=== PATIENT | male | born 1955 | race Caucasian/White ===

== ENCOUNTER 2024-09-11 13:52 | Inpatient (IN) | payer MEDICARE ==
[2024-09-11 15:01] LABS: #Basophils 0.04 10x3/uL (0.0-0.2); %Basophils 0.7 % (0.0-1.0); %Lymphocytes 8.2 % (21.0-51.0); %Monocytes 9.7 % (0.0-10.0); %Neutrophils 78.9 % (42.0-75.0); Hematocrit 32.7 % (42.0-52.0); Hemoglobin 10.3 g/dL (14.0-18.0); Mean Corpuscular HGB CONC 31.5 g/dL (32.0-36.0); Mean Corpuscular Hemoglobin 23.6 pg (27.0-31.0); Mean Platelet Volume 8.7 fL (7.4-10.4); Platelet Count 165 10x3/uL (130-400); RBC Distribution Width 22.3 % (11.5-14.5); Red Blood Cell (RBC) Count 4.36 mill/uL (4.70-6.10)
[2024-09-11] MEDS ORDERED: methylPREDNISolone Sod Succ/PF 125 MG/2 ML VIAL ONE (15:10)
[2024-09-11] MEDS ORDERED: Magnesium 2 GM/50 ML BAG (IN WATER) ONE (15:10)
[2024-09-11] MEDS ORDERED: Albuterol 2.5 MG (0.5 mL) NEB ONE (15:12)
[2024-09-11 15:14] LABS: Troponin I 0.048 ng/mL (< 0.028)
[2024-09-11 15:16] LABS: ALT (SGPT) 21 U/L (Less than 45); AST (SGOT) 43 U/L (11-34); Albumin 2.9 g/dL (3.1-4.5); Alkaline Phosphatase 129 U/L (40-110); Anion Gap 16 mmol/L (10-20); BUN (Urea Nitrogen) 17 mg/dL (8.4-25.7); Bilirubin, Total 1.2 mg/dL (0.3-1.2); Calc. Creatinine Clearance 0 mL/min (70-130); Calcium 8.9 mg/dL (7.8-10.44); Carbon Dioxide 28 mmol/L (23-31); Chloride 97 mmol/L (98-107); Estimated GFR 73; Globulin 5.4 g/dL (2.4-3.5); Glucose 112 mg/dL (80-115); Potassium 3.7 mmol/L (3.5-5.1); Protein, Total 8.3 g/dL (5.8-8.1); Sodium 137 mmol/L (136-145)
[2024-09-11] MEDS ORDERED: Furosemide 40 MG (4 mL) VIAL ONE (16:39)
[2024-09-11] MEDS ORDERED: Ipratropium/Albuterol 3 ML NEB NEB PRN (18:13)
[2024-09-11] MEDS ORDERED: Dextrose 5% in Water 1,000 ML IV PRN (18:21)
[2024-09-11] MEDS ORDERED: Dextrose 50% Abboject 50 ML SYRINGE SLOW IVP PRN (18:21)
[2024-09-11] MEDS ORDERED: Ondansetron PF 4 MG/2 ML Vial IVP PRN (18:21)
[2024-09-11] MEDS ORDERED: Ondansetron ODT 4 MG TAB PO PRN (18:21)
[2024-09-11] MEDS ORDERED: Glucagon 1 MG/ML KIT IM PRN (18:21)
[2024-09-11] MEDS ORDERED: Insulin Lispro 100 UNIT/ML 10 ML VIAL SC PRN (18:21)
[2024-09-11] MEDS: Ipratropium/Albuterol 3 ML NEB NEB SCH (19:10)
[2024-09-11] MEDS: Mometasone 200 MCG/Formoterol 5 MCG 120 PUFF INHALER INH SCH (19:12)
[2024-09-11] MEDS ORDERED: Aspirin 325 MG TAB ONE (20:27)
[2024-09-11] MEDS ORDERED: Nitroglycerin 0.4 MG TAB 1 EACH ONE (20:28)
[2024-09-11] MEDS: Aspirin 325 mg Enteric Coated Tablet PO SCH (20:30)
[2024-09-11] MEDS: Nitroglycerin 0.4 MG TAB (25 Tab Bottle) SL PRN (20:31)
[2024-09-11] MEDS ORDERED: guaiFENesin ER 600 MG TAB ONE (20:40)
[2024-09-11] MEDS ORDERED: Doxycycline 100 MG VIAL ONE (20:40)
[2024-09-11] MEDS ORDERED: cefTRIAXone (ROCEPHIN) 1 GM VIAL ONE (20:41)
[2024-09-11] MEDS: cefTRIAXone\\ROCEPHIN 1 GM in Sodium Chloride 0.9% 100 ML IVPB SCH (20:54)
[2024-09-11] MEDS: guaiFENesin ER 600 MG TAB PO SCH (20:55)
[2024-09-11 21:30] LABS: Troponin I 0.027 ng/mL (< 0.028)
[2024-09-11] MEDS: Doxycycline 100 MG in Sodium Chloride 0.9% 100 ML IVPB SCH (21:46)
[2024-09-11 21:56] LABS: Troponin I 0.043 ng/mL (< 0.028)
[2024-09-12 04:50] LABS: #Basophils Less than 0.03 10x3/uL (0.0-0.2); #Eosinophils Less than 0.03 10x3/uL (0.0-0.7); %Basophils 0.2 % (0.0-1.0); %Lymphocytes 4.3 % (21.0-51.0); %Monocytes 1.4 % (0.0-10.0); %Neutrophils 93.6 % (42.0-75.0); Hematocrit 31.4 % (42.0-52.0); Hemoglobin 9.6 g/dL (14.0-18.0); Mean Corpuscular HGB CONC 30.6 g/dL (32.0-36.0); Mean Corpuscular Hemoglobin 23.4 pg (27.0-31.0); Mean Corpuscular Volume 76.4 fL (78.0-98.0); Mean Platelet Volume 8.3 fL (7.4-10.4); Platelet Count 137 10x3/uL (130-400); RBC Distribution Width 22.2 % (11.5-14.5); Red Blood Cell (RBC) Count 4.11 mill/uL (4.70-6.10)
[2024-09-12 05:13] LABS: Anion Gap 16 mmol/L (10-20); BUN (Urea Nitrogen) 21 mg/dL (8.4-25.7); Calc. Creatinine Clearance 110 mL/min (70-130); Calcium 8.7 mg/dL (7.8-10.44); Carbon Dioxide 27 mmol/L (23-31); Chloride 98 mmol/L (98-107); Estimated GFR 57; Glucose 242 mg/dL (80-115); Iron 14 ug/dL (65-175); Iron Binding Capacity, Total 350 mcg/dL (261-462); Potassium 3.4 mmol/L (3.5-5.1); Sodium 138 mmol/L (136-145)
[2024-09-12 05:14] LABS: Iron 15 ug/dL (65-175); Iron Binding Capacity, Total 348 mcg/dL (261-462)
[2024-09-12] MEDS ORDERED: Furosemide 20 MG (2 mL) VIAL ONE (06:27)
[2024-09-12] MEDS: Furosemide 20 MG (2 mL) VIAL SLOW IVP SCH ×2 (06:36→17:51)
[2024-09-12] MEDS ORDERED: Ipratropium/Albuterol 3 ML NEB ONE ×4 (07:23→14:56)
[2024-09-12] MEDS ORDERED: Aspirin Chewable 81 MG TAB ONE (08:53)
[2024-09-12] MEDS ORDERED: Aspirin 81 mg Enteric Coated Tablet ONE (08:54)
[2024-09-12] MEDS ORDERED: Enoxaparin 40 MG (0.4 mL) SYRINGE ONE (08:54)
[2024-09-12] MEDS ORDERED: guaiFENesin ER 600 MG TAB ONE (08:55)
[2024-09-12] MEDS ORDERED: methylPREDNISolone Sod Succ 40 MG VIAL ONE (08:56)
[2024-09-12] MEDS ORDERED: Doxycycline 100 MG VIAL ONE (08:57)
[2024-09-12] MEDS ORDERED: methylPREDNISolone Sod Succ 40 MG VIAL IVP SCH (09:00)
[2024-09-12] MEDS ORDERED: Loratadine 10 MG TAB ONE (09:25)
[2024-09-12] MEDS ORDERED: Sodium Chloride 0.9% 100 ML ONE (09:58)
[2024-09-12] MEDS: Enoxaparin 40 MG (0.4 mL) SYRINGE SC SCH (10:06)
[2024-09-12] MEDS: Aspirin 81 mg Enteric Coated Tablet PO SCH (10:08)
[2024-09-12] MEDS: Insulin Lispro 100 UNIT/ML 10 ML VIAL SC PRN (10:20)
[2024-09-12 13:04] LABS: Legionella Urinary Ag Negative (Negative); Strep pneumo Urine Ag NEGATIVE (NEGATIVE)
[2024-09-12 17:43] VITALS: BMI 39.6
[2024-09-12] MEDS: Potassium Chloride 20 MEQ TAB PO SCH (17:51)
[2024-09-12] MEDS: traZODone HCl 50 MG TAB PO SCH (22:11)
[2024-09-13 04:23] LABS: #Basophils Less than 0.03 10x3/uL (0.0-0.2); #Eosinophils Less than 0.03 10x3/uL (0.0-0.7); %Basophils 0.1 % (0.0-1.0); %Lymphocytes 6.1 % (21.0-51.0); %Monocytes 6.5 % (0.0-10.0); Hematocrit 33.3 % (42.0-52.0); Hemoglobin 10.3 g/dL (14.0-18.0); Mean Corpuscular HGB CONC 30.9 g/dL (32.0-36.0); Mean Corpuscular Hemoglobin 23.5 pg (27.0-31.0); Mean Corpuscular Volume 75.9 fL (78.0-98.0); Mean Platelet Volume 8.4 fL (7.4-10.4); Platelet Count 160 10x3/uL (130-400); RBC Distribution Width 22.4 % (11.5-14.5); Red Blood Cell (RBC) Count 4.39 mill/uL (4.70-6.10)
[2024-09-13 04:56] LABS: Anion Gap 13 mmol/L (10-20); BUN (Urea Nitrogen) 31 mg/dL (8.4-25.7); Calc. Creatinine Clearance 127 mL/min (70-130); Calcium 8.4 mg/dL (7.8-10.44); Carbon Dioxide 31 mmol/L (23-31); Chloride 101 mmol/L (98-107); Estimated GFR 68; Glucose 138 mg/dL (80-115); Potassium 3.3 mmol/L (3.5-5.1); Sodium 142 mmol/L (136-145)
[2024-09-13] MEDS: Metoprolol Tartrate 5 MG (5 mL) VIAL IVP SCH (05:03)
[2024-09-13] MEDS: Potassium Chloride 20 MEQ TAB PO SCH (06:42)
[2024-09-13 06:45] LABS: Magnesium 2.1 mg/dL (1.6-2.6)
[2024-09-13 07:04] LABS: Troponin I 0.121 ng/mL (< 0.028)
[2024-09-13] MEDS ORDERED: Cyclobenzaprine 10 MG TAB PO PRN (08:41)
[2024-09-13] MEDS: Spironolactone 25 MG TAB PO SCH (10:45)
[2024-09-13] MEDS: Ranolazine ER 500 MG TAB PO SCH (10:46)
[2024-09-13] MEDS: Metoprolol Succinate XL 25 MG ER.TAB PO SCH (10:46)
[2024-09-13] MEDS: Empagliflozin 25 MG TAB PO SCH (10:47)
[2024-09-13] MEDS: glipiZIDE 5 MG TAB PO SCH (10:47)
[2024-09-13] MEDS: Clopidogrel Bisulfate 75 MG TAB PO SCH (10:47)
[2024-09-13] MEDS: Acetaminophen 325 MG TAB PO PRN (12:11)
[2024-09-13] MEDS: Cholecalciferol 1,000 UNITS (25 MCG) TAB PO SCH (16:35)
[2024-09-13] MEDS: Ascorbic Acid 500 mg Chewable Tablet PO SCH (16:35)
[2024-09-13] MEDS: Mesalamine DR 400 mg Capsule PO SCH (16:36)
[2024-09-13] MEDS: Dexamethasone 4 mg/ml Vial SLOW IVP SCH (16:36)
[2024-09-13] MEDS: Zinc Sulfate 220 MG CAP PO SCH (16:36)
[2024-09-13] MEDS: Dexamethasone 4 MG in Sodium Chloride 0.9% 50 ML IVPB SCH (17:35)
[2024-09-13] MEDS: Mometasone 100 MCG HFA INHALER (RT USE) INH SCH (18:23)
[2024-09-13] MEDS: Atorvastatin Calcium 40 MG TAB PO SCH (21:08)
[2024-09-13] MEDS: Doxycycline 100 MG CAP PO SCH (21:08)
[2024-09-14 05:05] LABS: #Basophils Less than 0.03 10x3/uL (0.0-0.2); #Eosinophils Less than 0.03 10x3/uL (0.0-0.7); %Basophils 0.2 % (0.0-1.0); %Lymphocytes 3.6 % (21.0-51.0); %Monocytes 10.7 % (0.0-10.0); %Neutrophils 85.3 % (42.0-75.0); Hematocrit 33.5 % (42.0-52.0); Hemoglobin 10.1 g/dL (14.0-18.0); Mean Corpuscular HGB CONC 30.1 g/dL (32.0-36.0); Mean Corpuscular Hemoglobin 23.4 pg (27.0-31.0); Mean Corpuscular Volume 77.5 fL (78.0-98.0); Mean Platelet Volume 8.4 fL (7.4-10.4); Platelet Count 130 10x3/uL (130-400); RBC Distribution Width 22.7 % (11.5-14.5); Red Blood Cell (RBC) Count 4.32 mill/uL (4.70-6.10)
[2024-09-14 06:20] LABS: BUN (Urea Nitrogen) 26 mg/dL (8.4-25.7)
[2024-09-14 06:22] LABS: Calcium 8.4 mg/dL (7.8-10.44); Chloride 100 mmol/L (98-107); Glucose 136 mg/dL (80-115); Potassium 4.1 mmol/L (3.5-5.1); Sodium 137 mmol/L (136-145)
[2024-09-14 06:23] LABS: Anion Gap 15 mmol/L (10-20); Calc. Creatinine Clearance 154 mL/min (70-130); Carbon Dioxide 26 mmol/L (23-31); Estimated GFR 89
[2024-09-14] MEDS ORDERED: Dexamethasone 4 MG in Sodium Chloride 0.9% 50 ML IVPB SCH (09:00)
[2024-09-14] MEDS ORDERED: Cholecalciferol (Vitamin D3) 400 UNITS TAB PO SCH (09:00)
[2024-09-14] MEDS: Cholecalciferol 1,000 UNITS (25 MCG) TAB PO SCH (09:48)
[2024-09-14] MEDS: Ascorbic Acid 500 mg Chewable Tablet PO SCH (09:48)
[2024-09-14] MEDS: Dexamethasone 4 mg/ml Vial SLOW IVP SCH (09:49)
[2024-09-14] MEDS: Zinc Sulfate 220 MG CAP PO SCH (09:49)
[2024-09-14] MEDS: Metoprolol Succinate XL 25 MG ER.TAB PO SCH (15:46)
[2024-09-14 15:56] VITALS: BP 122/58; TEMP 97.9
[2024-09-15] MEDS ORDERED: Metoprolol Succinate XL 50 MG ER.TAB PO SCH (09:00)
== END 2024-09-14 16:03 | disposition home or self-care (01) | DRG 177 ==
LOC: ERS 13:52 → ERHOLD 17:36 → OBSVTOIN 09-12 09:40 → 2NO 09-12 17:32
PROVIDERS: ADMIT Internal Medicine; ATTEND Hospitalist
PROC: 5A09357 Assistance with Respiratory Ventilation, Less than 24 Consecutive Hours, Continuous Positive Airway Pressure (ICD-10-PCS; principal; 2024-09-12)
PROC: 3E0333Z Introduction of Anti-inflammatory into Peripheral Vein, Percutaneous Approach (ICD-10-PCS; 2024-09-13)
PROC: 8E0ZXY6 Isolation (ICD-10-PCS; 2024-09-13)
DX: U07.1 COVID-19 (principal); I50.33 Acute on chronic diastolic (congestive) heart failure; J12.82 Pneumonia due to coronavirus disease 2019; J96.21 Acute and chronic respiratory failure with hypoxia; J44.1 Chronic obstructive pulmonary disease with (acute) exacerbation; J44.0 Chronic obstructive pulmonary disease with (acute) lower respiratory infection; C34.90 Malignant neoplasm of unspecified part of unspecified bronchus or lung; E11.9 Type 2 diabetes mellitus without complications; I35.0 Nonrheumatic aortic (valve) stenosis; D50.9 Iron deficiency anemia, unspecified
CPT/HCPCS: 36415; 36416; 71045; 80048; 80053; 82728; 83540; 83550; 83735; 83880; 84145; 84484; 85025; 87428; 87449; 87899; 93005; 93010; 94664; 96374; 96375; J0696; J1100; J1650; J1940; J2919; J3475; J7611; J7620